=== PATIENT | female | born 1960 | race Caucasian/White ===

== ENCOUNTER 2021-05-20 17:10 | Emergency (ER) | payer OTHER ==
[2021-05-20 20:57] LABS: BASOPHIL 0.1 % (0-2); EOSINOPHIL 0 % (0-5); HCT 38.3 % (37.0-47.0); LYMPHOCYTE 23.7 % (15-48); MCH 29.1 pg (25.0-31.0); MCHC 33.9 g/dL (32.0-36.0); MCV 85.9 fL (78.0-100.0); MONOCYTE 8.5 % (0-12); MPV 9.4 fL (6.0-9.5); NRBC 0; PLT 312 K/uL (150-400); RBC 4.46 M/uL (4.20-5.40); RDW 13.4 % (11.5-14.0); WBC 7.9 K/uL (4.0-10.5)
[2021-05-20 20:59] LABS: NEUTROPHIL 67.1 % (41-80)
[2021-05-20 21:12] LABS: INR 1.15 (0.9-1.2); PROTHROMBIN TIME 14.1 SECONDS (11.8-13.4); PTT 29.2 SECONDS (24.4-34.7)
[2021-05-20 21:13] LABS: D-DIMER 1.25 ug/mLFEU (0.00-0.41)
[2021-05-20 21:23] LABS: PRO-BNP 60 pg/mL (<125)
[2021-05-20 21:29] LABS: ALBUMIN 2.8 g/dL (3.4-5.0); BILIRUBIN - TOTAL 0.6 mg/dL (0.2-1.0); BUN/CREAT RATIO (CALC) 11.1 RATIO; C-REACTIVE PROTEIN 6.3 mg/dL (<=0.90); CREATININE 0.54 mg/dL (0.51-0.95); MAGNESIUM 2.5 mg/dL (1.8-2.4); POTASSIUM 3.3 mmol/L (3.5-5.1); TOTAL PROTEIN 6.8 g/dL (6.4-8.2)
[2021-05-20] MEDS ORDERED: MEDROL 4MG DOSEP4 MG PO (22:15)
[2021-05-20] MEDS ORDERED: NAPROXEN500 MG PO (22:15)
[2021-05-20] MEDS ORDERED: VENTOLIN HFA18 GM INH (22:15)
[2021-05-20] MEDS ORDERED: TESSALON PERLE100 M1 PO (22:15)
== END 2021-05-21 02:25 | disposition home or self-care (01) ==
LOC: FER 17:10
PROVIDERS: Emergency Medicine
DX: U07.1 COVID-19 (principal)
CPT/HCPCS: 36415; 71275; 80053; 82728; 83615; 83735; 83880; 84145; 84484; 85025; 85379; 85610; 85730; 86140; 93005; 94640; 94664; J1100; M0243; Q0244; Q9967